=== PATIENT | female | born 1960 | race Caucasian/White ===

== ENCOUNTER 2017-01-08 15:15 | Emergency (ER) | payer BC ==
--- NOTE | 2017-01-08 15:35 | PDOC ---
History of Present Illness - General History Source: Patient Exam Limitations: No Limitations - History of Present Illness Initial Comments: 01/08/17 15:49 The patient is a 56 year old female, with significant past medical history of mitral valve prolapse, hypothyroidism, rheumatoid arthritis, who presents to the emergency room complaining of palpitations, shortness of breath, lightheadedness and nausea since 10:30 this morning, approximately 5 hours ago. She notes that the palpitations have gotten a little better since this morning, but the shortness of breath, lightheadedness and nausea remain. She is taking atenolol for many years, prescribed by Dr. Johns after being diagnosed with mitral valve prolapse. The shortness of breath occurs when sitting and is not exacerbated upon movement. She also notes that she experienced some tingling in the right arm, which had since subsided. She denies chest pain, but states that her chest feels sore because of the palpitations. She notes that she experienced anxiety in the past, but does not feel like this episode of palpitations is anxiety. Denies cold sweats. Denies fever, chills, vomiting. Allergies: none reported PCP: Dr. Johns <Jackie Graham - Last Filed: 01/08/17 15:49> <Tasha Kuo - Last Filed: 01/09/17 07:21> - General Chief Complaint: Palpitations Stated Complaint: PALPATATIONS Time Seen by Provider: 01/08/17 15:34 Past History <Jackie Graham - Last Filed: 01/08/17 15:49> - Past Medical History Anemia: Yes (YRS AGO) Asthma: No Cancer: No Cardiac Disorders: No CVA: No COPD: No CHF: No Dementia: No Diabetes: No GI Disorders: No Disorders: No HTN: No Hypercholesterolemia: No Liver Disease: No Seizures: No Thyroid Disease: Yes (HYPOTHYROID) - Psycho/Social/Smoking Cessation Hx Anxiety: No Suicidal Ideation: No Smoking History: Never smoked Have you smoked in the past 12 months: No Hx Alcohol Use: Yes (OCCAS) Drug/Substance Use Hx: No Substance Use Type: Alcohol <Tasha Kuo - Last Filed: 01/09/17 07:21> - Past Medical History Allergies/Adverse Reactions: Allergies Allergy/AdvReac Type Severity Reaction Status Date / Time No Known Allergies Allergy Unverified 07/09/15 11:22 Home Medications: Ambulatory Orders Folic Acid 0.4 mg PO DAILY 06/26/13 Cholecalciferol (Vitamin D3) [Vitamin D] 4,000 iu PO DAILY 07/09/15 Escitalopram Oxalate [Lexapro -] 10 mg PO DAILY 07/09/15 Methotrexate Sodium [Methotrexate] 3 tab PO WEEKLY 01/08/17 Review of Systems - Review of Systems Able to Perform ROS?: Yes Comments:: 01/08/17 15:51 GENERAL/CONSTITUTIONAL: +lightheadedness. No fever or chills. No weakness. HEAD, EYES, EARS, NOSE AND THROAT: No change in vision. No ear pain or discharge. No sore throat. GASTROINTESTINAL: +nausea. No vomiting, diarrhea or constipation. GENITOURINARY: No dysuria, frequency, or change in urination. CARDIOVASCULAR: +palpitations, SOB. RESPIRATORY: No cough, wheezing, or hemoptysis. MUSCULOSKELETAL: No joint or muscle swelling or pain. No neck or back pain. SKIN: No rash NEUROLOGIC: No headache, vertigo, loss of consciousness, or change in strength/ sensation. ENDOCRINE: No increased thirst. No abnormal weight change. <Jackie Graham - Last Filed: 01/08/17 15:49> *Physical Exam - Physical Exam Comments: 01/08/17 15:51 GENERAL: Awake, alert, and fully oriented, in no acute distress EYES: PERRLA, EOMI, sclera anicteric, conjunctiva clear NECK: Normal ROM, supple, no lymphadenopathy, JVD, or masses LUNGS: Breath sounds equal, clear to auscultation bilaterally. No wheezes, and no crackles HEART: Regular rate and rhythm, normal S1 and S2, no murmurs, rubs or gallops EXTREMITIES: Normal range of motion, no edema. No clubbing or cyanosis. No cords, erythema, or tenderness NEUROLOGICAL: Cranial nerves II through XII grossly intact. Normal speech, normal gait SKIN: Warm, Dry, normal turgor, no rashes or lesions noted. <Jackie Graham - Last Filed: 01/08/17 15:49> ED Treatment Course - LABORATORY CBC & Chemistry Diagram: 01/08/17 16:20 01/08/17 16:20 <Tasha Kuo - Last Filed: 01/09/17 07:21> Medical Decision Making - Medical Decision Making 01/09/17 07:19 Pt presents to the ED complaining of palpitations. Longstanding history of palpitations and MVP, for which she takes propranolol, and anxiety. EKG shows intermittent PVCs, but otherwise just sinus bradycardia. Labs including cardiac enzymes and TSH are normal. Will discharge home. <Tasha Kuo - Last Filed: 01/09/17 07:21> *DC/Admit/Observation/Transfer - Attestations Scribe Attestion: 01/08/17 15:51 Documentation prepared by DARRYL Tsai, acting as medical anthropologist for Tasha Kuo MD. <Jackie Graham - Last Filed: 01/08/17 15:49> <Tasha Kuo - Last Filed: 01/09/17 07:21> Diagnosis at time of Disposition: Palpitations - Discharge Dispostion Disposition: HOME Condition at time of disposition: Good - Patient Instructions Printed Discharge Instructions: DI for Palpitations Additional Instructions: Ms Dong Thank you for coming in to the ER today Please follow up with Dr Johns in 2 days in his office You can call the ER for your TSH results in 1 hours ([phone]) Return to the ER for any other concerns or complaints
[2017-01-08 16:10] VITALS: BP 135/82; PULSE 59; TEMP 98; BMI 22.6
[2017-01-08 16:24] LABS: EOSINOPHIL 1.2 % (0-4.5)
[2017-01-08 16:29] LABS: BASOPHIL 1.3 % (0-2.0); MCH 33.6 pg (25.7-33.7); MEAN CELL VOLUME 98.7 fl (80-96); NEUTROPHILS 66.4 % (42.8-82.8); PLATELET COUNT 198 K/MM3 (134-434); RDW 12.7 % (11.6-15.6)
[2017-01-08 16:59] LABS: ALBUMIN 4.1 g/dl (3.5-5.0); ALK PHOS 58 U/L (32-92); ANION GAP 11 (8-16); CALCIUM 9.4 mg/dl (8.4-10.2); CO2 21 mmol/L (22-28); CPK 79 IU/L (26-192); CREATININE 0.6 mg/dl (0.6-1.3); GLUCOSE,RANDOM 80 mg/dl (74-106); SGOT/AST 27 U/L (10-42); SGPT/ALT 18 U/L (10-40); TOT PROT 7.1 g/dl (6.4-8.3)
[2017-01-08 17:48] LABS: TROPONIN I (DFP) < 0.03 ng/ml (0.03-0.50)
--- NOTE | 2017-01-08 19:24 | PDOC ---
*Physical Exam - Vital Signs Last Vital Signs Temp Pulse Resp BP Pulse Ox 98 F 59 L 19 135/82 99 01/08/17 15:16 01/08/17 15:16 01/08/17 16:40 01/08/17 15:16 01/08/17 16:40 ED Treatment Course - LABORATORY CBC & Chemistry Diagram: 01/08/17 16:20 01/08/17 16:20 - ADDITIONAL ORDERS Additional order review: Laboratory Results 01/08/17 16:20 Sodium 133 L Potassium 3.9 Chloride 101 Carbon Dioxide 21 L Anion Gap 11 BUN 9 D Creatinine 0.6 Creat Clearance w eGFR > 60 Random Glucose 80 Calcium 9.4 Total Bilirubin 1.0 D AST 27 ALT 18 Alkaline Phosphatase 58 Creatine Kinase 79 Troponin I < 0.03 L Total Protein 7.1 Albumin 4.1 01/08/17 16:20 RBC 3.90 MCV 98.7 H MCHC 34.0 RDW 12.7 MPV 9.0 Neutrophils % 66.4 Lymphocytes % 23.9 Monocytes % 7.2 Eosinophils % 1.2 Basophils % 1.3 Medical Decision Making - Medical Decision Making 01/08/17 19:21 I received this patient in sign out Pt presented to the ER with palpitations Awaiting TSH 01/08/17 19:22 Laboratory Tests 01/08/17 16:20 Sodium 133 L Potassium 3.9 Chloride 101 Carbon Dioxide 21 L Random Glucose 80 Creatine Kinase 79 Troponin I < 0.03 L I have contacted the lab They have just received the TSH Will require 40 minutes to run Pt does not want to stay in the ER for this lab result She will follow up with Dr Johns on Tuesday Return to the ER for any other concerns or complaints *DC/Admit/Observation/Transfer Diagnosis at time of Disposition: Palpitations - Discharge Dispostion Disposition: HOME Condition at time of disposition: Stable Admit: No - Patient Instructions Printed Discharge Instructions: DI for Palpitations Additional Instructions: Ms Dong Thank you for coming in to the ER today Please follow up with Dr Johns in 2 days in his office You can call the ER for your TSH results in 1 hours ([phone]) Return to the ER for any other concerns or complaints
[2017-01-08 19:35] LABS: THYROID STIMULATING HORMONE 0.47 uIU/ml (0.358-3.74)
--- NOTE | 2017-01-11 14:10 | EKG ---
Test Reason : Blood Pressure : / mmHG Vent. Rate : 057 BPM Atrial Rate : 057 BPM P-R Int : 136 ms QRS Dur : 074 ms QT Int : 450 ms P-R-T Axes : 041 041 047 degrees QTc Int : 438 ms SINUS BRADYCARDIA WITH OCCASIONAL PREMATURE VENTRICULAR COMPLEXES WHEN COMPARED WITH ECG OF 13-FEB-2005 10:44, SINUS RHYTHM HAS REPLACED JUNCTIONAL RHYTHM T WAVE AMPLITUDE HAS INCREASED IN ANTERIOR LEADS REPEAT EKG IF CLINICALLY INDICATED Confirmed by ALEKSANDRA PHILLIPS MD ([id number]) on 01/11/2017 2:10:24 PM Referred By: MD GRAF Confirmed By:ALEKSANDRA PHILLIPS MD
== END 2017-01-08 19:27 | disposition home or self-care (01) ==
LOC: FER 15:15
DX: R00.2 Palpitations (principal); I34.1 Nonrheumatic mitral (valve) prolapse; E03.9 Hypothyroidism, unspecified; M06.9 Rheumatoid arthritis, unspecified
CPT/HCPCS: 36415; 80053; 84443; 84484; 85025; 93005; 99283-25